=== PATIENT | female | born 2000 | race Caucasian/White ===

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

== ENCOUNTER 2018-11-14 18:32 | Emergency (ER) | payer BC, SELFPAY ==
[2018-11-14 18:36] VITALS: BP 119/72; PULSE 77; RESP 18; TEMP 37.2; O2SAT 100
--- NOTE | 2018-11-14 18:47 | W.ED.GENAD ---
Discharge Plan Disposition Patient Disposition: HOME Condition: Good Discharge Details Chief Complaint: EyeProblem Clinical Impression: Bacterial conjunctivitis, Periorbital cellulitis Primary Care Provider: Idania Herring ED Provider: Beau Rosas Home Meds and New Rx's Prescriptions: New cephalexin [Keflex] 500 mg capsule 500 mg PO QID 7 Days Qty: 28 RF: 0 No Action levonorgestrel-ethinyl estrad [Aviane] 0.1-20 mg-mcg tablet 1 tab PO DAILY Qty: 84 RF: 3 Discharge Instructions Instructions: Conjunctivitis (ED) Additional Instructions: Please apply a thin ribbon of the erythromycin ointment to your right eye 3 times daily. If you notice any swelling or pain with movement of your eye or swelling around the eye, please take the Keflex as directed. Please follow-up closely with your primary care provider for reassessment. If you notice any worsening of your symptoms, or any new symptoms such as worsening eye pain, vision changes vomiting, diarrhea, fever, chills, shortness of breath, chest pain, numbness, weakness, or fainting , please return immediately to the emergency department for reevaluation. Please follow up with your primary care provider as soon as possible for reassessment and reevaluation. As always, it was a pleasure participating in your medical care today. Referrals: Idania Herring, [employer]PER[employer] [Primary Care Provider] - Discharge Data Discharge Date/Time-TO BE ENTERED AT DEPARTURE: 11/14/18 18:59 Medical Decision Making This is a pleasant 18-year-old female who presents with right eye irritation and drainage for the last day. She is not a contact lens wear. She denies any recent trauma to the eye or foreign bodies. It does feel like there is something gritty in there though. She denies a history of STDs. Physical exam demonstrates notable right-sided conjunctivitis, purulent discharge. Minimal swelling over the superior orbital region, no significant pain with movement of the eye. No evidence of preseptal cellulitis. Exam is otherwise unremarkable. Vision intact. No fever or chills. Signs and symptoms are clinically consistent with bacterial conjunctivitis. No evidence of foreign body. We will give erythromycin ointment for this. Additionally though as a precaution with the minimal swelling in his periorbital region, we will give Keflex for treatment of potential cellulitis. I do feel that this is certainly being over cautious at this time, but with concern for lack of prompt follow-up I do feel that it is reasonable for coverage at this time. We discussed red flags which return. I have extensively reviewed the treatment plan and discharge instructions with the patient and their family. I have addressed all patient concerns at this time. The patient and family was made aware of what symptoms to monitor for that would warrant a return to the emergency department. Discussed the plan with the patient and family, they demonstrate verbal understanding and agreement with our assessment and plan at this time. HPI General Date/Time Provider Initiated Documentation: 11/14/18 18:38. HPI Narrative: This is a 18-year-old female with no significant past medical history, who does not wear contact lenses, who presents today for evaluation of discharge from right eye. She denies any recent foreign bodies, rest, or other complaints. She states that yesterday she noticed some irritation before she went to bed in the right eye, and when she woke up she noticed significant goopy discharge coming from her right eye. She does admit to some scratchiness in sensation, but denies any other significant vision changes. She has been using warm compresses on her right eye, does admit to some minimal swelling around the upper orbit, but denies any significant pain with movement of the eye. No fever chills or headache. No other complaints. Related Data Home Medications Medication Instructions Recorded Confirmed levonorgestrel-ethinyl estradiol 1 tab PO DAILY #84 tab 09/12/18 0.1 mg-20 mcg tablet cephalexin [Keflex] 500 mg PO QID 7 Days #28 cap 11/14/18 Previous Rx's Medication Instructions Recorded levonorgestrel-ethinyl estradiol 1 tab PO DAILY #84 tab 09/12/18 0.1 mg-20 mcg tablet cephalexin [Keflex] 500 mg PO QID 7 Days #28 cap 11/14/18 Allergies Allergy/AdvReac Type Severity Reaction Status Date / Time No Known Allergies Allergy Unverified 12/29/17 08:45 General Stated Complaint: EyeProblem JAYMIE: 4 Review of Systems Review of Systems All systems reviewed & are unremarkable except as noted in HPI and below PFSH Medical History History of pertussis Surgical History Tooth extraction (~08/2015) Family History Mother History of Yordan thyroiditis Premature ovarian failure Thyroid disorder Father Essential hypertension Grandparent Substance abuse Diabetes Essential hypertension Personal history of malignant neoplasm Heart disease Mental disorder Social History Smoking/Tobacco Use Status: Never Alcohol Intake: never Substance use type: does not use Do you feel safe at home: Yes Do you feel safe in your relationship?: Yes Exam Narrative Exam Narrative: 1.Const: Well-nourished, Well-developed, appearing stated age 2.Eyes: PERRL,symmetrical lids. Notable right-sided conjunctival injection. Right eye: EOMI, PERRL, Peripheral vision intact. No nystagmus. Fundoscopic exam shows normal optic discs and normal vasculature. No external signs of preseptal cellulitis, minimal redness around the eye with the patient had the warm compress, no proptosis. No hyphema, no signs of trauma around the eye, no periorbital emphysema. Fluorescein exam is negative for corneal abrasion, negative Jacinto sign. Visual acuity as documented in chart. Notable purulent discharge coming from the right eye. No significant pain with movement of eye. Eversion of the upper and lower lids shows no evidence of foreign body. 3.ENT: Atraumatic external nose and ears. Moist MM. Neck: Symmetric, trachea midline, No thyromegaly. 4.CVS: +S1/S2, No murmurs or gallops. Peripheral pulses 2+ and equal in all extremities. Brisk capillary refill in all extremities. 5.RESP: Unlabored respiratory effort. Clear to auscultation bilaterally. No wheezes rales or rhonchi 6.GI: Soft, Nontender/Nondistended, No hepatosplenomegaly. No guarding or rebound. 7.MSK: Normocephalic/Atraumatic, Extremities w/o deformity or ttp No cyanosis or clubbing, Normal movement of all extremities 8.Skin: Warm, Dry. No rashes or lesions. 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 Sensation grossly intact, no focal neurologic deficits. 10.Psych: (AAO) x3. Appropriate mood and affect Course Vital Signs Temperature 37.2 C 11/14/18 18:36 Pulse 77 11/14/18 18:36 Respiratory Rate 18 11/14/18 18:36 Blood Pressure 119/72 11/14/18 18:36 Pulse Oximetry 100 11/14/18 18:36 Temperature 37.2 C 11/14/18 18:36 Temperature Source Temporal Artery Scan 11/14/18 18:36 Pulse 77 11/14/18 18:36 Respiratory Rate 18 11/14/18 18:36 Respiratory Effort Non-Labored 11/14/18 18:44 Blood Pressure 119/72 11/14/18 18:36 Blood Pressure Position Sitting 11/14/18 18:36 Pulse Oximetry 100 11/14/18 18:36 Oxygen Delivery Method Room Air 11/14/18 18:36 Oxygen Flow Rate 0 11/14/18 18:36 Pain Level 4 11/14/18 18:36
[2018-11-14] MEDS: Erythromycin Ophth Oint 3.5 GM TUBE OD (18:50)
[2018-11-14] MEDS: Fluorescein STRIPS 100/BOX 1 MG (18:51)
[2018-11-14] MEDS: Tetracaine 0.5% 4 ML BTL (18:52)
== END 2018-11-14 18:59 | disposition home or self-care (01) ==
PROVIDERS: Emergency Provider Student in an Organized Health Care Education/Training Program; PCP Registered Nurse
DX: H10.89 Other conjunctivitis (principal); L03.213 Periorbital cellulitis
CPT/HCPCS: 99283

== ENCOUNTER 2018-12-30 12:53 | Outpatient (REF) | payer BC, SELFPAY ==
--- NOTE | 2018-12-30 12:00 | PAPFT_PTH ---
PATIENT: Madelin Kirkpatrick [facility] U[facility][id number] AGE/SX: 18/F ROOM: RE12/30/[address]: Viry Dumas : 2000 BED: DIS: 12/30/2018 SPEC #: [id number] RECD: 01/02/19 12:58 STATUS: JAVON CASTANON #: [id number] CHENTE: 12/30/18 12:[address]: Viry Dumas DEPT: [facility] Cytology RECD BY: Valentine Milligan Tissues: 1 - CX/ENDOCX FOR PAP SMEARS Procedures: PAP THIN PREP/[facility] Screening Comments: [id number] (CHLAMYDIA/GC)
[2019-01-04 15:22] LABS: Chlamydia Result Negative; GC Result Negative; Specimen Description SEE COMMENTS
== END 2018-12-30 13:13 ==
LOC: NCHCN 12:53
PROVIDERS: PCP Nurse Practitioner Family; Visit Provider Nurse Practitioner Family
DX: Z00.00 Encounter for general adult medical examination without abnormal findings (principal); Z12.4 Encounter for screening for malignant neoplasm of cervix; Z01.419 Encounter for gynecological examination (general) (routine) without abnormal findings
CPT/HCPCS: 87491; 87591; 88142

== ENCOUNTER 2020-04-22 15:07 | Outpatient (REF) | payer BC, SELFPAY ==
[2020-04-24 18:29] LABS: Patient Race White; SARS-CoV-2 RNA Undetected (Undetected); SARS-CoV-2 Specimen Source Nasal
== END 2020-04-22 15:27 ==
LOC: NCHCN 15:07
PROVIDERS: PCP Nurse Practitioner Family; Visit Provider Nurse Practitioner Family
DX: Z20.828 Contact with and (suspected) exposure to other viral communicable diseases (principal)
CPT/HCPCS: U0003

== ENCOUNTER 2021-03-07 15:19 | Outpatient (REF) | payer BC, SELFPAY ==
[2021-03-10 11:51] LABS: HIV-1/2 Ag & Ab Screen Negative (Negative)
[2021-03-10 13:11] LABS: Syphilis Serology (RPR) Negative (Negative)
[2021-03-10 15:24] LABS: Chlamydia Result Negative (Negative); GC Result Negative (Negative)
[2021-03-10 16:04] LABS: HCV RNA Qualitative Undetected (Undetected)
== END 2021-03-07 15:20 | disposition home or self-care (01) ==
LOC: NCHCN 15:19
PROVIDERS: PCP Nurse Practitioner Family; Visit Provider Nurse Practitioner Family
DX: Z00.00 Encounter for general adult medical examination without abnormal findings (principal)
CPT/HCPCS: 87389; 87491; 87522; 87591; 86592

== ENCOUNTER 2023-09-14 14:39 | Outpatient (REF) | payer BC, SELFPAY ==
--- NOTE | 2023-09-14 11:30 | PAPFT_PTH ---
PATIENT: Madelin Kirkpatrick LOC: [facility]#:[id number] AGE/SX: 23/F ROOM: RE09/14/[address]: Tamika Perry : 2000 BED: DIS: 09/14/2023 SPEC #: [id number] RECD: 09/14/23 17:31 STATUS: JAVON REAnastacio #: [id number] CHENTE: 09/14/23 11:[address]: Tamika Perry DEPT: [facility] Cytology RECD BY: Valentine Milligan ENTERED: 09/14/23 17:32 SP TYPE: PAPFT OTHR DR: Viry Dumas Tissues: 1 - CX/ENDOCX FOR PAP SMEARS Procedures: PAP THIN PREP/[facility] Screening Comments: [id number]
== END 2023-09-14 14:40 | disposition home or self-care (01) ==
LOC: NCHCN 14:39
PROVIDERS: PCP Nurse Practitioner Family; Visit Provider Nurse Practitioner Family
DX: Z12.4 Encounter for screening for malignant neoplasm of cervix; Z01.419 Encounter for gynecological examination (general) (routine) without abnormal findings; D26.0 Other benign neoplasm of cervix uteri
CPT/HCPCS: 88142